=== PATIENT | male | born 1955 | race Caucasian/White ===

== ENCOUNTER → 2018-05-20 09:38 | Outpatient (CLI) | payer OTHER, SELFPAY ==
--- NOTE | 2018-05-20 09:46 | XR_ITS ---
XR chest 2V HISTORY: Restrictive pulmonary disease ITS.REASON: PULMONARY DISEASE ORDERING PHYSICIAN: Gregory Sandhu PATIENT AGE: 63 years COMPARISON: None FINDINGS: The cardiomediastinal silhouette and pulmonary vascularity are within normal limits. There are no previous exams available for comparison. Increased markings are present in the right middle lobe. The remaining lungs are clear. No effusions. There is minimal thoracic curvature convex right. No acute bony abnormalities. IMPRESSION: Increased markings in the right middle lobe which could be due to an area of infiltrate, atelectasis, or fibrosis.
== END ==
PROVIDERS: Visit Provider Orthopaedic Surgery
DX: J98.4 Other disorders of lung (principal)
CPT/HCPCS: 71046; 94060; 94640